=== PATIENT | male | born 1970 | race Two or more races ===

== ENCOUNTER 2017-09-09 13:36 | Emergency (ER) | payer BC ==
[2017-09-09] MEDS ORDERED: Take Home: Ciprofloxacin 500 MG Tab, 2 Tab Pack PO ONE (15:38)
--- NOTE | 2017-09-09 15:46 | EDM.PDOC ---
ED HPI GENERAL MEDICAL PROBLEM - General Chief Complaint: Genitourinary Problem Stated Complaint: BLOOD IN URINE Time Seen by Provider: 09/09/17 13:45 Source of Information: Reports: Patient History Limitations: Reports: No Limitations - History of Present Illness INITIAL COMMENTS - FREE TEXT/NARRATIVE: Patient reports urine in his blood that started this morning. He denies pain, burning, hesitancy, frequency. He does have retention and doesn't feel he is able to empty fully. He denies fever, chill, night sweats. No other complaints. No history of kidney stones, prostate cancer. 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 Onset: Today, Sudden Duration: Intermittent Quality: Denies: Ache Severity: Mild Associated Symptoms: Reports: No Other Symptoms - Related Data Allergies Allergy/AdvReac Type Severity Reaction Status Date / Time Sulfa (Sulfonamide Allergy Anaphylactic Verified 09/09/17 13:40 Antibiotics) Shock Home Meds: Home Meds Cetirizine HCl [Zyrtec] 10 mg PO DAILY 09/09/17 [History] Social & Family History - Tobacco Use Smoking Status *Q: Never Smoker - Alcohol Use Days Per Week of Alcohol Use: 1 Number of Drinks Per Day: 2 Total Drinks Per Week: 2 - Recreational Drug Use Recreational Drug Use: No ED ROS GENERAL - Review of Systems Review Of Systems: See Below Constitutional: Reports: No Symptoms HEENT: Reports: No Symptoms Respiratory: Reports: No Symptoms Cardiovascular: Reports: No Symptoms Endocrine: Reports: No Symptoms GI/Abdominal: Reports: No Symptoms : Reports: Hematuria Musculoskeletal: Reports: No Symptoms Skin: Reports: No Symptoms Neurological: Reports: No Symptoms Psychiatric: Reports: No Symptoms Hematologic/Lymphatic: Reports: No Symptoms Immunologic: Reports: No Symptoms ED EXAM, RENAL/ - Physical Exam Exam: See Below Exam Limited By: No Limitations General Appearance: Alert, WD/WN, No Apparent Distress Eye Exam: Bilateral Eye: EOMI, Normal Inspection, PERRL Ears: Normal External Exam Nose: Normal Inspection, Normal Mucosa, No Blood Throat/Mouth: Normal Inspection, Normal Lips, Normal Teeth, Normal Gums, Normal Oropharynx, Normal Voice, No Airway Compromise Head: Atraumatic, Normocephalic Neck: Normal Inspection, Supple, Non-Tender, Full Range of Motion Respiratory/Chest: No Respiratory Distress, Lungs Clear, Normal Breath Sounds, No Accessory Muscle Use, Chest Non-Tender Cardiovascular: Normal Peripheral Pulses, Regular Rate, Rhythm, No Edema, No Gallop, No JVD, No Murmur, No Rub GI/Abdominal: Normal Bowel Sounds, Soft, Non-Tender, No Organomegaly, No Distention, No Abnormal Bruit, No Mass Back Exam: Normal Inspection, Full Range of Motion, NT Extremities: Normal Inspection, Normal Range of Motion, Non-Tender, Normal Capillary Refill, No Pedal Edema Neurological: Alert, Oriented, CN II-XII Intact, Normal Cognition, Normal Gait, Normal Reflexes, No Motor/Sensory Deficits Psychiatric: Normal Affect Skin Exam: Warm, Dry, Intact, Normal Color, No Rash Lymphatic: No Adenopathy Course - Vital Signs Last Recorded V/S: Last Vital Signs Temp 36.1 C 09/09/17 13:42 Pulse 73 09/09/17 13:42 Resp 14 09/09/17 13:42 BP 135/76 09/09/17 13:42 Pulse Ox 95 09/09/17 13:42 - Orders/Labs/Meds Orders: Active Orders 24 hr Category Date Time Status Abdomen 2V AP Flat Upright [CR] Urgent Exams 09/09/17 14:45 Stop Req Abdomen Pelvis wo Cont [CT] Stat Exams 09/09/17 14:50 Ordered CHLAMYDIA/GC NUCLEIC ACID AMP [MREF] Routine Lab 09/09/17 13:54 Received PSA-EIA [REF] Stat Lab 09/09/17 14:29 Received UA W/MICROSCOPIC [URIN] Stat Lab 09/09/17 13:54 Ordered Labs: Laboratory Tests 09/09/17 09/09/17 Range/Units 13:54 14:29 WBC 7.2 (4.0-10.0) x10^3/uL RBC 5.13 (4.5-6.0) x10^6/uL Hgb 15.5 (14.0-18.0) g/dL Hct 43.6 (40.0-52.0) % MCV 85.0 (78.0-93.0) fL MCH 30.2 (26.0-32.0) pg MCHC 35.6 (32.0-36.0) g/dL RDW Coeff of Keanu 13.3 (10.0-15.0) % Plt Count 198 (130-400) x10^3/uL Neut % (Auto) 62.5 (50.0-80.0) % Lymph % (Auto) 23.2 L (25.0-50.0) % [place] % (Auto) 9.6 (2.0-11.0) % Eos % (Auto) 4.3 H (0.0-4.0) % Baso % (Auto) 0.4 (0.2-1.2) % Urine Color Yellow (YELLOW) Urine Appearance Other H (CLEAR) Urine pH 6.0 (5.0-8.0) Ur Specific [place] 1.025 Urine Protein Negative (NEGATIVE) mg/dL Urine Glucose (UA) Negative (NEGATIVE) mg/dL Urine Ketones Negative (NEGATIVE) mg/dL Urine Occult Blood Moderate H (NEGATIVE) Urine Nitrite Negative (NEGATIVE) Urine Bilirubin Negative (NEGATIVE) Urine Urobilinogen 0.2 (0.2) EU/dL Ur Leukocyte Esterase Negative (NEGATIVE) Urine RBC 10-20 H (NOT SEEN) /HPF Urine WBC 0-5 (NOT SEEN) /HPF Ur Squamous Epith Cells Rare (NEGATIVE) /HPF Urine Bacteria Not seen (NEGATIVE) /HPF Urine Mucus Rare H (NEGATIVE) /LPF Meds: Medications Discontinued Medications Generic Name Dose Route Start Last Admin Trade Name Freq PRN Reason Stop Dose Admin Ciprofloxacin 1 packet 09/09/17 15:38 Take Home: Ciprofloxacin 500 Mg, 2 Tab Pack PO 09/09/17 15:39 ONETIME ONE Departure - Departure Time of Disposition: 15:45 Disposition: Home, Self-Care 01 Condition: Good Clinical Impression: Cystitis - Discharge Information Instructions: Urinary Tract Infection, Adult Referrals: PCP,None [Primary Care Provider] - Additional Instructions: Drink plenty of water to stay hydrated. Take the Cipro 2 times per day for 5 days. Take the full course. If you develop shortness of breath, swelling in the face or difficulty breathing, stop the medication and come directly to the closest emergency room. Your CT did not show any stones or masses. If you have any questions or concerns please call. - Problem List & Annotations (1) Cystitis SNOMED Code(s): 97064495 Code(s): N30.90 - CYSTITIS, UNSPECIFIED WITHOUT HEMATURIA Status: Acute Priority: Low Current Visit: Yes - Problem List Review Problem List Initiated/Reviewed/Updated: Yes - My Orders Last 24 Hours: My Active Orders 09/09/17 13:54 CHLAMYDIA/GC NUCLEIC ACID AMP [MREF] Routine UA W/MICROSCOPIC [URIN] Stat 09/09/17 14:29 PSA-EIA [REF] Stat 09/09/17 14:45 Abdomen 2V AP Flat Upright [CR] Urgent 09/09/17 14:50 Abdomen Pelvis wo Cont [CT] Stat - Assessment/Plan Last 24 Hours: My Active Orders 09/09/17 13:54 CHLAMYDIA/GC NUCLEIC ACID AMP [MREF] Routine UA W/MICROSCOPIC [URIN] Stat 09/09/17 14:29 PSA-EIA [REF] Stat 09/09/17 14:45 Abdomen 2V AP Flat Upright [CR] Urgent 09/09/17 14:50 Abdomen Pelvis wo Cont [CT] Stat Assessment:: Cystitis Plan: Drink plenty of water to stay hydrated. Take the Cipro 2 times per day for 5 days. Take the full course. If you develop shortness of breath, swelling in the face or difficulty breathing, stop the medication and come directly to the closest emergency room. Your CT did not show any stones or masses. If you have any questions or concerns please call.
== END 2017-09-09 15:50 | disposition home or self-care (01) ==
LOC: VM.ED 13:36
DX: N30.91 Cystitis, unspecified with hematuria (principal); Z88.2 Allergy status to sulfonamides
CPT/HCPCS: 36415; 74176; 81001; 84153; 85025; 87086; 99284; A9270; 87491; 87591

== ENCOUNTER 2019-08-20 09:41 | Emergency (ER) | payer OTHER ==
[2019-08-20] MEDS ORDERED: Meclizine 25 MG Tab PO ONE (10:39)
--- NOTE | 2019-08-20 10:45 | CT ---
[id number] CT/CT Head WO IV EXAM: NONCONTRAST HEAD CT INDICATION: VERTIGO. COMPARISON: None. DISCUSSION: The ventricles and sulci are normal in size and configuration. The simeon and white matter are normal in attenuation. No mass effect or midline shift. No acute hemorrhage or extra-axial fluid collection. No acute territorial infarct is identified. Left sphenoid sinus mucosal retention cyst. Frothy secretions in the right sphenoid sinus suggest acute sinusitis. IMPRESSION: 1. No acute intracranial findings. 2. Acute right sphenoid sinusitis. Robert Tucker MD 08/20/19 1044 Thank you for allowing us to participate in the care of your patient.
[2019-08-20 11:03] LABS: CHLORIDE,CL 107 mmol/L (98-107); SODIUM,NA 145 mmol/L (136-145)
[2019-08-20 11:04] LABS: ANION GAP 15.1 mmol/L (10-20)
--- NOTE | 2019-08-20 11:10 | EDM.PDOC ---
ED HPI GENERAL MEDICAL PROBLEM - General Chief Complaint: General Stated Complaint: dizziness Time Seen by Provider: 08/20/19 10:01 Source of Information: Reports: Patient History Limitations: Reports: No Limitations - History of Present Illness INITIAL COMMENTS - FREE TEXT/NARRATIVE: Patient comes emergency department today with complaints of dizziness. This patient awoke about 5:00 this morning and remember during the night that he felt like he was constantly falling. When he got up to get ready for the day he felt unsteady on his feet and like he was constantly going to fall over. This is slowly improved and gotten better most of the morning and is completely resolved. He has not had a headache. He has had no falls or trauma. No head neck or back pain. No fever no chills. No visual disturbances. No weakness lightheadedness or syncope. No palpitations. No chest pain or shortness of breath or difficulty breathing. No cough or congestion. No abdominal pain no nausea or vomiting. No visual disturbance changes. No visual acuity changes. No paresthesias or change in the functionality of his upper or lower extremities. He did have a telehealth visit through the clinic this morning and they were concerned that they could not rule out a stroke so they called and told him to come to the ER. - Related Data Allergies Allergy/AdvReac Type Severity Reaction Status Date / Time Sulfa (Sulfonamide Allergy Anaphylactic Verified 08/20/19 09:55 Antibiotics) Shock Home Meds: Home Meds Cetirizine HCl [Zyrtec] 10 mg PO DAILY 09/09/17 [History] Colchicine 1 tab PO ASDIRECTED PRN 08/20/19 [History] Past Medical History HEENT History: Reports: Allergic Rhinitis Social & Family History - Tobacco Use Smoking Status *Q: Never Smoker ED ROS GENERAL - Review of Systems Review Of Systems: Comprehensive ROS is negative, except as noted in HPI. ED EXAM, GENERAL - Physical Exam Exam: See Below Exam Limited By: No Limitations General Appearance: Alert, WD/WN, No Apparent Distress Eye Exam: Bilateral Eye: EOMI, Normal Inspection, PERRL Ears: Normal External Exam, Normal TMs Ear Exam: Bilateral Ear: TM normal Nose: Normal Inspection, Normal Mucosa, No Blood Throat/Mouth: Normal Inspection, Normal Lips, Normal Teeth, Normal Oropharynx, Normal Voice, No Airway Compromise Head: Atraumatic, Normocephalic Neck: Normal Inspection, Supple, Non-Tender, Full Range of Motion. No: Carotid Bruit Respiratory/Chest: No Respiratory Distress, Lungs Clear, Normal Breath Sounds, No Accessory Muscle Use, Chest Non-Tender Cardiovascular: Normal Peripheral Pulses, Regular Rate, Rhythm Peripheral Pulses: 2+: Radial (L), Radial (R), Posterior Tibial (L), Posterior Tibial (R), Dorsalis Pedis (L), Dorsalis Pedis (R) GI/Abdominal: Normal Bowel Sounds, Soft, Non-Tender, No Distention, No Abnormal Bruit (Male) Exam: Deferred Rectal (Males) Exam: Deferred Back Exam: Normal Inspection, Full Range of Motion Extremities: Normal Inspection, Normal Range of Motion, Non-Tender, No Pedal Edema, Normal Capillary Refill Neurological: Alert, Oriented, CN II-XII Intact, Normal Cognition, Normal Gait, Normal Reflexes, No Motor/Sensory Deficits Psychiatric: Normal Affect, Normal Mood Skin Exam: Warm, Dry, Intact, Normal Color, No Rash Lymphatic: No Adenopathy EKG INTERPRETATION EKG Date: 08/20/19 Time: 10:40 Rhythm: NSR Rate (Beats/Min): 53 [place]: Normal P-Wave: Present QRS: Normal ST-T: Normal QT: Normal Course - Vital Signs Last Recorded V/S: Last Vital Signs Temp 36.6 C 08/20/19 09:45 Pulse 60 08/20/19 09:45 Resp 16 08/20/19 09:45 BP 138/76 08/20/19 09:45 Pulse Ox 96 08/20/19 09:45 - Orders/Labs/Meds Orders: Active Orders 24 hr Category Date Time Status EKG Documentation Completion [RC] STAT Care 08/20/19 10:11 Active Labs: Laboratory Tests 08/20/19 08/20/19 Range/Units 10:33 10:33 WBC 5.9 (4.0-10.0) x10^3/uL RBC 5.13 (4.5-6.0) x10^6/uL Hgb 15.4 (14.0-18.0) g/dL Hct 43.6 (40.0-52.0) % MCV 85.0 (78.0-93.0) fL MCH 30.0 (26.0-32.0) pg MCHC 35.3 (32.0-36.0) g/dL RDW Coeff of Keanu 13.0 (10.0-15.0) % Plt Count 185 (130-400) x10^3/uL Neut % (Auto) 61.1 (50.0-80.0) % Lymph % (Auto) 28.8 (25.0-50.0) % [place] % (Auto) 7.4 (2.0-11.0) % Eos % (Auto) 2.4 (0.0-4.0) % Baso % (Auto) 0.3 (0.2-1.2) % Sodium 145 (136-145) mmol/L Potassium 4.1 (3.5-5.1) mmol/L Chloride 107 (98-107) mmol/L Carbon Dioxide 27 (21-32) mmol/L Anion Gap 15.1 (10-20) mmol/L BUN 17 (7-18) mg/dL Creatinine 1.0 (0.70-1.30) mg/dL Est Cr Clr Drug Dosing TNP Estimated GFR (MDRD) > 60 Glucose 98 (74-106) mg/dL Calcium 9.1 (8.5-10.1) mg/dL Corrected Calcium 9.18 (8.5-10.1) mg/dL Total Bilirubin 0.4 (0.2-1.0) mg/dL AST 24 (15-37) U/L ALT 34 (16-63) U/L Alkaline Phosphatase 66 (46-116) U/L Troponin I < 0.017 (<=0.056) ng/mL Total Protein 7.4 (6.4-8.2) g/dL Albumin 3.9 (3.4-5.0) g/dL Globulin 3.5 Albumin/Globulin Ratio 1.11 Meds: Medications Discontinued Medications Generic Name Dose Route Start Last Admin Trade Name Freq PRN Reason Stop Dose Admin Meclizine HCl 25 mg 08/20/19 10:39 08/20/19 11:05 Antivert PO 08/20/19 10:40 25 mg ONETIME ONE Administration - Radiology Interpretation Free Text/Narrative:: CT of the head per radiology no acute intracranial findings. Acute right sphenoid sinusitis - Re-Assessments/Exams Free Text/Narrative Re-Assessment/Exam: 05/07/20 11:[address] of the head is negative. He does have an acute sphenoid sinusitis. His history of presentation and exam is more consistent with vertigo most likely from his sinusitis and he does now relate that for the past 4 days he has had increased sinus congestion pressure and popping in his ears. Symptoms of only been going on for the past 4 days so does not meet criteria for antibiotics. We will treat him symptomatically with Sudafed and fluticasone nasal rinses. He can try some meclizine if he has recurrent vertigo although I feel if he treats his sinusitis his vertigo will improve. He is understanding this and his questions are answered. Departure - Departure Time of Disposition: 11:15 Disposition: Home, Self-Care 01 Clinical Impression: Vertigo Sphenoid sinusitis Qualifiers: Chronicity: acute Recurrence: not specified as recurrent Qualified Code(s): J01.30 - Acute sphenoidal sinusitis, unspecified - Discharge Information *PRESCRIPTION DRUG MONITORING PROGRAM REVIEWED*: Not Applicable *COPY OF PRESCRIPTION DRUG MONITORING REPORT IN PATIENT ATUL: Not Applicable Instructions: Sinusitis, Adult, [id number], Dizziness, [id number] Referrals: PCP,None [Primary Care Provider] - Forms: ED Department Discharge Additional Instructions: Drink lots of fluids over the next few days. Make position changes slowly. Pseudophed the kind you need to get from the pharmacist if sinus pressure pain congestion. Flonase, 2 sprays each nostril once daily for a week and then 1 spray each nostril daily. OTC Meclizine OTC, 1 tablet every 6 hrs as needed for dizziness. Caution sedation sleepiness. Return to the ED if new or worsening symptoms. Follow up with PCP in the next 4-6 days if not improving sooner if worse. Sepsis Event Note - Evaluation Sepsis Screening Result: No Definite Risk - Focused Exam Vital Signs: Vital Signs Temp Pulse Resp BP Pulse Ox 08/20/19 09:45 36.6 C 60 16 138/76 96 Date Exam was Performed: 08/20/19 Time Exam was Performed: 11:23 - My Orders Last 24 Hours: My Active Orders 08/20/19 10:11 EKG Documentation Completion [RC] STAT - Assessment/Plan Last 24 Hours: My Active Orders 08/20/19 10:11 EKG Documentation Completion [RC] STAT Assessment:: Vertigo/dizziness-most likely from sphenoid sinusitis. Acute sphenoid sinusitis. Plan: Drink lots of fluids over the next few days. Make position changes slowly. Pseudophed the kind you need to get from the pharmacist if sinus pressure pain congestion. Flonase, 2 sprays each nostril once daily for a week and then 1 spray each nostril daily. OTC Meclizine OTC, 1 tablet every 6 hrs as needed for dizziness. Caution sedation sleepiness. Return to the ED if new or worsening symptoms. Follow up with PCP in the next 4-6 days if not improving sooner if worse.
== END 2019-08-20 11:20 | disposition home or self-care (01) ==
LOC: VM.ED 09:41
DX: J01.30 Acute sphenoidal sinusitis, unspecified (principal); R42 Dizziness and giddiness; Z88.2 Allergy status to sulfonamides
CPT/HCPCS: 36415; 70450; 80053; 84484; 85025; 93005; 99284-25; A9270-GY